=== PATIENT | male | born 1990 | race Caucasian/White ===

== ENCOUNTER 2022-09-18 13:49 | Emergency (ER) | payer MEDICAID, SELFPAY ==
[2022-09-18 13:50] VITALS: BP 131/72; PULSE 87; RESP 22; TEMP 37.1; O2SAT 99; BMI 31.3
--- NOTE | 2022-09-18 14:26 | EDS_ITS ---
HPI <PAULO Jimenez - Last Filed: 09/18/22 14:30> History of Present Illness Chief Complaint: Lower Extremity Injury Narrative Narrative: Patient is a 31-year-old male with history of methamphetamine abuse, homelessness who presents to the emergency department with multiple complaints. Patient states he currently is on a caceres from methamphetamines, last use was 30 minutes prior to calling the ambulance to come get him. Patient states that he has been injecting methamphetamine for multiple days, is been walking multiple miles on his shoes. He is careful with complaints of bilateral foot pain. He also states that he would like rehab, he also states that he needs to go to a homeless [place] [facility]. He is currently in a manic state and is difficult to keep on track. Denies any suicidal homicidal ideations. PFSH <PAULO Jimenez - Last Filed: 09/18/22 14:30> [facility] Medical History (Updated 09/18/22 @ 15:[address] Johny Ayon, DO) Depression Schizo affective schizophrenia Home Medications Unobtainable 09/18/22 [History Last Taken Unknown] Allergy/AdvReac Type Severity Reaction Status Date / Time No Known Allergies Allergy Verified 09/18/22 13:53 Surgical History (Updated 09/18/22 @ 13:56 by Julieta Fitzpatrick) Hx of abdominal surgery Social History Smoking Status: Current every day smoker tobacco type: cigarettes ROS <PAULO Jimenez - Last Filed: 09/18/22 14:30> ROS ED ROS Narrative Constitutional: Negative for fever, chills, weight loss, weakness Eyes: Negative for vision loss, vision change, double vision ENT: Negative for any sore throat, ear pain, congestion Cardiovascular: Negative for any chest pain, tightness, palpitations Respiratory: Negative for any cough, sputum production, hemoptysis, dyspnea, dyspnea on exertion, orthopnea Gastrointestinal: Negative for any abdominal pain, nausea, vomiting, diarrhea, constipation, blood in stool, blood in vomit : Negative for any urinary frequency, dysuria, retention, blood in urine Muscle skeletal: Negative for any muscle joint pain, stiffness, myalgias, arthralgias, neck pain, back pain. Positive bilateral feet pain Neurological: Negative for any headache, syncope, numbness or tingling, dizziness Skin: Negative for any rashes, lumps, itching, abrasions, lacerations Psychiatric: Negative for any depression, suicidal ideation, homicidal ideation. Positive for elevated anxiety, stress level Hematologic: Negative for any easy bruising, excessive bruising, easy bleeding Allergies: Negative for any eczema, hives, rash EXAM <PAULO Jimenez - Last Filed: 09/18/22 14:30> Physical Exam Narrative Exam Narrative: Vital signs reviewed. Patient is alert and orient x4. Patient is currently having a flight of ideas, he is difficult to stay on track. He states that he wants multiple things, he wants to get a cab to go to [place], he wants his feet looked at, he wants to come down from his high, he continues to state that he does not want to be pink slipped. HEET: Head normocephalic atraumatic, TMs clear bilaterally. Posterior pharynx is clear, dry mucous membranes. Nares clear bilaterally. Neck: Supple with no lymphadenopathy or tenderness. No signs of meningismus, negative jolt sign. Cardiac: Regular rate and rhythm no murmurs gallops or rubs, equal peripheral pulses bilaterally. Respiratory: Lungs clear to auscultation bilaterally. No chest tenderness. Abdomen: Soft, nontender, nondistended. No abdominal bruit or pulsatile masses. No hepatosplenomegaly Extremities: No peripheral edema, no signs of gross trauma or deformity. Active full range of motion of all extremities. Bilateral feet show no evidence of any acute trauma, there is no cellulitis. He does have shoes, he was not walking barefoot. Neuro: Cranial nerves II through XII intact, no focal neurological deficits. Skin: Clean dry and intact with no rash, purpura, petechiae, vesicles or pustules. Backs/flank: No CVA tenderness, no midline spinal tenderness, no deformity. Psych: Patient is obviously acting intoxicated from his methamphetamines. Patient is moving all extremities, has odd mouth movements, is speaking very quickly. Const Vital Signs: 09/18/22 13:50 Temperature 98.7 F Temperature Source Temporal Pulse Rate 87 Respiratory Rate 22 H Blood Pressure 131/72 H Blood Pressure Mean 91 Pulse Ox 99 Oxygen Delivery Method Room Air Positive unkempt General Appearance ED: unkempt Psych Appearance: unkempt <Dr. Johny AyonDO - Last Filed: 09/18/22 15:42> Physical Exam Const Vital Signs: 09/18/22 13:50 Temperature 98.7 F Temperature Source Temporal Pulse Rate 87 Respiratory Rate 22 H Blood Pressure 131/72 H Blood Pressure Mean 91 Pulse Ox 99 Oxygen Delivery Method Room Air [facility] <PAULO Jimenez - Last Filed: 09/18/22 14:30> [facility] Treatment and Re-Evaluation :: Patient appears well, patient appears nontoxic, vital signs are stable. Patient presents to the emergency department with complaints of methamphetamine abuse, feet pain from walking. Patient will be given 1 mg of Ativan to calm down. <Dr. Johny Ayon DO - Last Filed: 09/18/22 15:42> [facility] Narrative Medical decision making narrative: Attending note: Patient seen and evaluated with shirring tender. I perform my own [id number] evaluation. I agree with the plan of work-up. Patient brought in by EMS after calling 911 to come to the ED for potential detox from methamphetamines. He has been doing this daily for years, he states more in the last 3 days. He is homeless. He states he has been having feet pain due to walking too much. There is no injuries. He denies any other acute ingestions. Denies suicidal or homicidal ideations. Patient examined, he was manic however he was directable speaking. Feet exam noted calluses there is no ulcers no signs of infection. Neuro vas intact distally. Patient initially ordered for p.o. Ativan to try to help with symptoms however declined this. He states he wanted hospitalization for detox. States there is no detoxification, discussed treatment is Ativan to help with his current state of symptoms. He again declines this multiple times, he is not suicidal homicidal or homicidal, therefore there is no current reason to hold him against his will. Patient states he will just leave and go back to the [place] [facility]. He is given follow-up as an outpatient. Discharge Plan Triage Chief Complaint: Lower Extremity Injury Other Complaint: Substance Abuse ED Midlevel Provider: Shmuel Sloan ED Provider: Johny Ayon Dx/Rx/DC Orders Clinical Impression: Methamphetamine dependence, Pain in both feet Instructions: Meth Abuse Addiction Prescriptions: No Action Unobtainable Primary Care Provider: Care Physician,No Primary Referrals: Betty Arenas [Non-Staff] - 1 Week NOT,DEFINED [Non-Staff] - Disposition Disposition: Home, Self Care
--- NOTE | 2022-09-18 14:42 | ED.RN ---
PT EDUCATED BY THIS RN AND THE PURPOSE FOR PO ATIVAN. PT STATES HE DOES NOT WANT THAT BECAUSE HE DOES NOT WANT TO BE TIRED GOING TO A DETENTION, HE WOULD RATHER BE STIMULATED WITH THE METH. HE STATES HE WANTS THE LAYER UP TO SEND HIM TO REHAB FOR METH.
== END 2022-09-18 15:40 | disposition left against medical advice (07) ==
PROVIDERS: Emergency Provider Emergency Medicine; Visit Provider Emergency Medicine
DX: M79.671 Pain in right foot (principal); F15.20 Other stimulant dependence, uncomplicated; M79.672 Pain in left foot; F17.210 Nicotine dependence, cigarettes, uncomplicated
CPT/HCPCS: 99283